=== PATIENT | male | born 1955 | race Caucasian/White ===

== ENCOUNTER → 2020-01-13 | Day surgery (SDC) | payer BC, MEDICARE ==
[~2020-01-13] MED LIST: ACETAMINOPHEN 1000 MG/100 ML 100 ML IV ONE; ASTELIN30 ML; ATROPINE SULFATE 1 MG/ML VIAL ONE; BACLOFEN10 MG PO; DEXAMETHASONE SOD PHOS INJ 4 MG/ML VIAL ONE; EPHEDRINE SULFATE INJ 50 MG/ML VIAL ONE; EPINEPHRINE HCL 1:1000 1ML 1 MG/ML AMP ONE; FENTANYL CITRATE/PF 100MCG/2 ML INJ ONE; GABAPENTIN300 MG PO; INDERAL10 MG MT; LIDOCAINE 1% W/EPINEPHRINE 20 ML VIAL ONE; LIDOCAINE HCL 2% LOCAL INJ 5 ML SDV VIAL INJ ONE; MAGNESIUM OXID400 MG PO; MIDAZOLAM HCL 2 MG/2 ML VIAL ONE; NEOSTIGMINE 1 MG/ML 10ML VIAL ONE; NORCO 10-325 T1 EACH PO; ONDANSETRON HCL INJ 2MG/ML 2ML 2 MG/ML VIAL ONE; PROAIR HFA INH8.5 GM INH; PROPOFOL IV EMULSION 10 MG/ML 20 ML VIAL ONE; RHINOCORT AQUA8.6 GM; ROCURONIUM BROMIDE 10 MG/ML 5ML VIAL IV ONE; SEVOFLURANE INHAL SOLN 250 ML PEN BTL ONE; SYMBICORT 16010.2 GM INH; TOPROL XL50 MG PO; VASCEPA1 GM PO; VITAMIN D3250 MC1 PO; Z B COMPLEX MT; Z.0.ABILIFY5 MG MT; Z.0.AMIODARONE HCL20 MT; Z.0.ASPIRIN325 MG MT; Z.0.DYAZIDE 37.5-21 MT; Z.0.LIPITOR40 MG PO; Z.0.PLAVIX75 MG PO; Z.0.TRAZODONE HCL100 MT; Z.0.TRICOR145 MG MT; Z.0.ZYRTEC10 MG MT; [UNRECOGNIZED DRUG - CODE] MT; [UNRECOGNIZED DRUG - CODE] MT; [UNRECOGNIZED DRUG - CODE] MT; [UNRECOGNIZED DRUG - OTHER] MT
[2020-01-13 07:23] LABS: BASOPHILS % 0.4 % (0.0-1.0); EOSINOPHILS # (AUTO) 0.2 (0.0-0.4); EOSINOPHILS % 2.3 % (0.0-6.0); HEMATOCRIT 42.3 % (38.2-49.6); HEMOGLOBIN 14.4 g/dL (14.0-18.0); LYMPHOCYTES # (AUTO) 2.3 (1.0-3.2); MEAN CORPUSCULAR HEMOGLOBIN 33.3 pg (28-32); MEAN CORPUSCULAR VOLUME 97.7 fL (81-99); MONOCYTES # (AUTO) 0.6 (0.2-0.8); MONOCYTES % 7.3 % (4.4-11.3); NEUTROPHILS # (AUTO) 4.8 (2.1-6.9); NEUTROPHILS % 60.7 % (38.7-80.0); PLATELET COUNT 204 x10e3/uL (140-360); RED BLOOD COUNT 4.33 x10e6/uL (4.3-5.7); RED CELL DISTRIBUTION WIDTH 12.8 % (11.7-14.4)
[2020-01-13 08:15] LABS: INR 1.01; PROTHROMBIN TIME 13.8 seconds (11.9-14.5)
[2020-01-13 08:16] LABS: PARTIAL THROMBOPLASTIN TIME 29.7 seconds (23.8-35.5)
[2020-01-13 10:00] VITALS: BP 132/82
== END | disposition home or self-care (01) ==
LOC: OR 06:03
PROVIDERS: ATTEND Otolaryngology Otolaryngology/Facial Plastic Surgery
DX: J32.0 Chronic maxillary sinusitis (principal); J32.2 Chronic ethmoidal sinusitis; J34.2 Deviated nasal septum; J34.89 Other specified disorders of nose and nasal sinuses; I25.10 Atherosclerotic heart disease of native coronary artery without angina pectoris; J70.3 Chronic drug-induced interstitial lung disorders; T46.2X5A Adverse effect of other antidysrhythmic drugs, initial encounter; Z79.02 Long term (current) use of antithrombotics/antiplatelets; Z95.5 Presence of coronary angioplasty implant and graft; Z87.891 Personal history of nicotine dependence
CPT/HCPCS: 30520; 31255; 31267; 36415; 71046; 85025; 85610; 85730; 88300; 88304; J0131; J0171; J0461; J1100; J2001; J2250; J2405; J2704; J2710; J3010